=== PATIENT | male | born 1990 | race American Indian/Alaskan Native ===

== ENCOUNTER 2019-04-14 17:18 | Emergency (ER) | payer MEDICAID ==
[2019-04-14 17:27] VITALS: BP 144/77; RESP 18; TEMP 98.8; O2SAT 99
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
[2019-04-14 19:42] VITALS: PULSE 80
== END 2019-04-14 19:44 | disposition home or self-care (01) ==
LOC: ED 17:18
DX: S62.397A Other fracture of fifth metacarpal bone, left hand, initial encounter for closed fracture (principal); W22.8XXA Striking against or struck by other objects, initial encounter; F17.210 Nicotine dependence, cigarettes, uncomplicated; F20.9 Schizophrenia, unspecified